=== PATIENT | female | born 1945 | race Caucasian/White ===

== ENCOUNTER 2016-08-15 16:31 | Emergency (ER) | payer MEDICARE ==
[~2016-08-15] VITALS: Ht 152.4 cm; Wt 66.0 kg
[~2016-08-15 16:31] MED LIST: DIAZ5TAB PO; MECL25 PO; TEMA15 PO
[2016-08-15 16:39] VITALS: BP 122/51; PULSE 67; RESP 16; TEMP 98.1; O2SAT 95
[2016-08-15] MEDS ORDERED: COUM5TAB PO (16:47)
[2016-08-15] MEDS ORDERED: METO50TA PO (16:47)
[2016-08-15] MEDS ORDERED: CLIN1CAP6 PO (16:57)
--- NOTE | 2016-08-15 16:57 | PD ---
HPI Chief Complaint: Bite or Sting Time Seen by Provider: 16:49 Travel History International Travel<30 days: No Contact w/Intl Traveler<30days: No Traveled to known affect area: No History of Present Illness HPI 70-year-old female presents emergency department after sustaining a cat bite to her left wrist/forearm this morning. The cat is a family pet kept indoors up-to -date on immunizations. Patient reports the wound has become increasingly more painful and swollen since this morning. Pain is worse with movement. Severity 5 out of 10. Patient has 3 puncture wounds to left wrist forearm area with mild swelling. She denies numbness/tingling/weakness in the extremity. PFSH Past Medical History Narrative Medical Atrial fibrillation on Coumadin Hx Anticoagulant Therapy: Yes Anxiety: Yes Depression: No Heart Rhythm Problems: No Cancer: No Cardiac Catheterization: No Cardiovascular Problems: No High Cholesterol: No Chest Pain: Yes (CP, neg trops>>possible gerd at last visit) Congestive Heart Failure: No Diabetes: No Diminished Hearing: No Endocrine: No Gastrointestinal Disorders: Yes GERD: Yes Genitourinary: No Hypertension: No Immune Disorder: No Musculoskeletal: No Neurologic: No Psychiatric: No Reproductive: No Respiratory: No Myocardial Infarction: No Tetanus Vaccination: < 5 Years Influenza Vaccination: Yes ?: Not Tubal Ligation: Yes Past Surgical History Abdominal Surgery: Yes Coronary Artery Bypass Graft: No Tonsillectomy: Yes Other Surgery: Yes (cyst from back removed) Family History Family Myocardial Infarction: Yes (MOTHER- CABG X5 VESSEL) Social History Alcohol Use: Yes (OCCASIONAL-SOCIAL) Tobacco Use: No Substance Use: No Allergies-Medications (Allergen,Severity, Reaction): Coded Allergies: Penicillin (Verified Allergy, Severe, 08/15/16) Aspirin (Verified Adverse Reaction, Severe, upsets stomach, 08/15/16) Reported Meds & Prescriptions Reported Meds & Active Scripts Active Reported Metoprolol Tartrate 50 Mg Tab 50 Mg PO BID Coumadin (Warfarin) 5 Mg Tab 5 Mg PO DAILY Review of Systems Except as stated in HPI: all other systems reviewed are Neg Physical Exam Narrative GENERAL: Well-nourished, well-developed patient. SKIN: Focused skin assessment warm/dry. 3 superficial puncture wounds to the left distal forearm with mild swelling and tenderness to palpation. Mild erythema of the site the punctures. No lymphangitis. HEAD: Normocephalic. EYES: No scleral icterus. No injection or drainage. NECK: Supple, trachea midline. No JVD or lymphadenopathy. CARDIOVASCULAR: Regular rate and rhythm without murmurs, gallops, or rubs. RESPIRATORY: Breath sounds equal bilaterally. No accessory muscle use. GASTROINTESTINAL: Abdomen soft, non-tender, nondistended. MUSCULOSKELETAL: No cyanosis. Left upper extremity 3 superficial puncture wounds to the left distal forearm with mild swelling and tenderness to palpation. Mild erythema of the site the punctures. No lymphangitis. 2+ distal pulses. Extremity is neurovascularly intact. BACK: Nontender without obvious deformity. No CVA tenderness. Data Data Last Documented VS Vital Signs Date Time Temp Pulse Resp B/P Pulse Ox O2 Delivery O2 Flow Rate FiO2 08/15/16 16:39 98.1 67 16 122/51 95 MDM Medical Decision Making Medical Screen Exam Complete: Yes Emergency Medical Condition: Yes Differential Diagnosis Cat-bite, puncture wound Narrative Course 70-year-old female presents to emergency department for evaluation of a Bite left upper extremity. The cat is a family pet Kept indoors and up-to-date on immunizations. On exam patient has 3 puncture wounds distal aspect of the forearm with mild swelling and tenderness to palpation. The puncture wounds have a small amount of surrounding erythema. Patient was placed on Augmentin arm put in a sling for comfort. Patient to follow-up with her doctor 2 days. Return precautions discussed. Patient agrees to plan Diagnosis Primary Impression: Cat bite of forearm Qualified Code: S51.852A - Cat bite of forearm, left, initial encounter Referrals: Primary Care Physician Patient Instructions: Animal Bite (ED), General Instructions Additional Instructions: Take medication as prescribed Follow up with her primary doctor for recheck of the wound when she days. Return to emergency department if new worsening symptoms. Scripts Clindamycin 300 Mg [id number] Mg PO Q6H #28 CAP Ref 0 Prov:Apryl Wang 08/15/16 Disposition: 01 DISCHARGE HOME Condition: Stable Apryl Wang Aug 15, 2016 16:57
== END 2016-08-15 17:21 | disposition home or self-care (01) ==
LOC: PHEFT 16:31
DX: S51.852A Open bite of left forearm, initial encounter (principal); W55.01XA Bitten by cat, initial encounter; I48.91 Unspecified atrial fibrillation; Z79.01 Long term (current) use of anticoagulants
CPT/HCPCS: 99282

== ENCOUNTER 2016-09-17 13:02 | Emergency (ER) | payer MEDICARE ==
[~2016-09-17] VITALS: Ht 152.4 cm; Wt 64.0 kg
[~2016-09-17 13:02] MED LIST changes: +CLIN1CAP6 PO; +COUM5TAB PO; -DIAZ5TAB PO; -MECL25 PO; +METO50TA PO; -TEMA15 PO
[2016-09-17 13:07] VITALS: BP 145/63; PULSE 68; RESP 18; TEMP 98.5; O2SAT 99
[2016-09-17] MEDS ORDERED: SODIUM CHLORIDE 0.9% FLUSH 10 ML FLUSH IV FLUSH PRN (13:15)
[2016-09-17] MEDS ORDERED: MORPHINE SULFATE 8 MG/ML INJ IV PUSH PRN (13:30)
[2016-09-17] MEDS ORDERED: ONDANSETRON HCL 4 MG/2 ML VIAL IV PUSH ONE (13:30)
--- NOTE | 2016-09-17 13:32 | PD ---
HPI . Abdominal pain Chief Complaint: Abdominal Pain Time Seen by Provider: 13:12 Travel History International Travel<30 days: No Contact w/Intl Traveler<30days: No Traveled to known affect area: No History of Present Illness HPI Patient presents with a chief complaint of lower abdominal pain. Onset was 6 days. Pain is described as sharp and like contractions. Her maximum pain is 10 /10. She has not noted any modifying factors. She reports some associated vomiting and diarrhea. She has also had chills and a poor appetite. She states that she has a known history of diverticulitis. PFSH Past Medical History Hx Anticoagulant Therapy: Yes (COUMADIN) Anxiety: Yes Depression: No Heart Rhythm Problems: No Cancer: No Cardiac Catheterization: No Cardiovascular Problems: Yes High Cholesterol: No Chest Pain: Yes (CP, neg trops>>possible gerd at last visit) Congestive Heart Failure: No Diabetes: No Diminished Hearing: No Endocrine: No Gastrointestinal Disorders: Yes GERD: Yes Genitourinary: No Hypertension: No Immune Disorder: No Musculoskeletal: No Neurologic: No Psychiatric: No Reproductive: No Respiratory: No Myocardial Infarction: No Tubal Ligation: Yes Past Surgical History Abdominal Surgery: Yes Coronary Artery Bypass Graft: No Tonsillectomy: Yes Other Surgery: Yes (cyst from back removed) Social History Alcohol Use: Yes (OCCASIONAL-SOCIAL) Tobacco Use: No Substance Use: No Allergies-Medications (Allergen,Severity, Reaction): Coded Allergies: Penicillin (Verified Allergy, Severe, 09/17/16) Aspirin (Verified Adverse Reaction, Severe, upsets stomach, 09/17/16) Reported Meds & Prescriptions Reported Meds & Active Scripts Active Zofran (Ondansetron HCl) 4 Mg Tab 4 Mg PO Q6HR PRN [place] (Hydrocodone-Acetaminophen) 5-325 mg Tab 1 Tab PO Q4H PRN Flagyl (Metronidazole) 500 Mg Tab 500 Mg PO BID 10 Days Bactrim DS (Sulfamethoxazole-Trimethoprim) 800-160 Mg Tab 1 Tab PO BID Reported Temazepam 15 Mg Cap 15 Mg PO HS PRN Metoprolol Tartrate 50 Mg Tab 50 Mg PO BID Coumadin (Warfarin) 5 Mg Tab 5 Mg PO DAILY Review of Systems Except as stated in HPI: all other systems reviewed are Neg General / Constitutional: Positive: Fever, Chills Gastrointestinal: Positive: Nausea, Vomiting, Diarrhea, Abdominal Pain Genitourinary: No: Urgency, Frequency, Dysuria Physical Exam Narrative GENERAL: Awake and alert. She appears to be in some distress related to pain. She is walking bent at the waist. SKIN: Warm and dry. HEAD: Atraumatic. Normocephalic. EYES: Pupils equal and round. Extraocular movements are intact. ENT: No nasal bleeding or discharge. Mucous membranes pink and moist. NECK: Trachea midline. Neck is supple. CARDIOVASCULAR: Regular rate and rhythm. Heart sounds are normal. RESPIRATORY: No accessory muscle use. Lungs are clear with full air movement throughout. GASTROINTESTINAL: Abdomen soft. Left lower quadrant tenderness with guarding. Bowel sounds positive. Nondistended. MUSCULOSKELETAL: No obvious deformities. No edema. NEUROLOGICAL: Awake and alert. No obvious cranial nerve deficits. Motor grossly within normal limits. Normal speech. PSYCHIATRIC: Appropriate mood and affect; insight and judgment normal. Data Data Last Documented VS Vital Signs Date Time Temp Pulse Resp B/P Pulse Ox O2 Delivery O2 Flow Rate FiO2 09/17/16 14:43 70 18 119/62 97 Room Air 09/17/16 13:07 98.5 Orders Complete Blood Count With Diff (09/17/16 13:12) Comprehensive Metabolic Panel (09/17/16 13:12) Lactic Acid (09/17/16 13:12) Urinalysis - C+S If Indicated (09/17/16 13:12) Ct Abd/Pel W Iv Contrast(Rout) (09/17/16 13:12) Iv Access Insert/Monitor (09/17/16 13:12) Sodium Chloride 0.9% Flush (Ns Flush) (09/17/16 13:15) Ondansetron Inj (Zofran Inj) (09/17/16 13:30) Morphine Inj (Morphine Inj) (09/17/16 13:30) Ciprofloxacin 400 Mg Premix (Cipro 400 M (09/17/16 13:45) Metronidazole 500 Mg Inj (Flagyl 500 Mg (09/17/16 13:45) Urine Culture (09/17/16 13:25) Sodium Chlor 0.9% 1000 Ml Inj (Ns 1000 M (09/17/16 14:30) Iohexol 350 Inj (Omnipaque 350 Inj) (09/17/16 15:14) Labs Laboratory Tests Test 09/17/16 09/17/16 13:25 13:55 Urine Color YELLOW Urine Turbidity CLEAR Urine pH 5.5 Urine Specific [place] 1.033 Urine Protein 30 mg/dL Urine Glucose (UA) NEG mg/dL Urine Ketones 15 mg/dL Urine Occult Blood MOD Urine Nitrite NEG Urine Bilirubin NEG Urine Leukocyte Esterase SMALL Urine RBC 10-14 /hpf Urine WBC 9-14 /hpf Urine Squamous Epithelial 0-5 /hpf Cells Urine Bacteria FEW /hpf Urine Mucus MANY /lpf Microscopic Urinalysis Comment CULTURE INDICATED White Blood Count 8.0 TH/MM3 Red Blood Count 4.17 MIL/MM3 Hemoglobin 12.6 GM/DL Hematocrit 38.0 % Mean Corpuscular Volume 91.1 FL Mean Corpuscular Hemoglobin 30.1 PG Mean Corpuscular Hemoglobin 33.0 % Concent Red Cell Distribution Width 12.4 % Platelet Count 352 TH/MM3 Mean Platelet Volume 8.6 FL Neutrophils (%) (Auto) 71.2 % Lymphocytes (%) (Auto) 21.2 % Monocytes (%) (Auto) 6.3 % Eosinophils (%) (Auto) 1.0 % Basophils (%) (Auto) 0.3 % Neutrophils # (Auto) 5.7 TH/MM3 Lymphocytes # (Auto) 1.7 TH/MM3 Monocytes # (Auto) 0.5 TH/MM3 Eosinophils # (Auto) 0.1 TH/MM3 Basophils # (Auto) 0.0 TH/MM3 CBC Comment DIFF FINAL Differential Comment Sodium Level 141 MEQ/L Potassium Level 3.5 MEQ/L Chloride Level 109 MEQ/L Carbon Dioxide Level 23.5 MEQ/L Anion Gap 9 MEQ/L Blood Urea Nitrogen 12 MG/DL Creatinine 0.69 MG/DL Estimat Glomerular Filtration 84 ML/MIN Rate Random Glucose 98 MG/DL Lactic Acid Level 1.5 mmol/L Calcium Level 8.4 MG/DL Total Bilirubin 0.2 MG/DL Aspartate Amino Transf 17 U/L (AST/SGOT) Alanine Aminotransferase 26 U/L (ALT/SGPT) Alkaline Phosphatase 82 U/L Total Protein 7.1 GM/DL Albumin 3.3 GM/DL [facility] Medical Decision Making Medical Screen Exam Complete: Yes Emergency Medical Condition: Yes Medical Record Reviewed: Yes (medical history is significant for atrial fibrillation and insomnia) Differential Diagnosis Differential diagnosis of abdominal pain includes but is not limited to gastritis, pancreatitis, hepatitis, gastroenteritis, gallbladder disease, constipation, urinary retention, UTI, peptic ulcer disease, diverticulitis or appendicitis Narrative Course This patient presents with lower abdominal pain. She is tender in the left lower quadrant. She will be evaluated for probable diverticulitis. CBC & BMP Diagram 09/17/16 13:55 Lactic acid is 1.5. Her UA looks contaminated. CT: Normal examination with a small cyst left ovary. 2 benign liver cysts. The patient feels much better. She will be discharged home. Diagnosis Primary Impression: Abdominal pain Qualified Code: R10.32 - Left lower quadrant pain Referrals: Kera Valencia MD Patient Instructions: Narcotic given in the ED Med/Other Pt SpecificInfo: Prescription(s) given Scripts Ondansetron (Zofran)4 Mg Tab4 Mg PO Q6HR PRN (NAUSEA OR VOMITING) #12 TAB Ref 0 Prov:Nazanin Dawson MD 09/17/16 Hydrocodone-Acetaminophen ([place])5-325 mg Tab1 Tab PO Q4H PRN (PAIN) #12 TAB Ref 0 Prov:Nazanin Dawson MD 09/17/16 Metronidazole (Flagyl)500 Mg [id number] Mg PO BID 10 Days Ref 0 Prov:Nazanin Dawson MD 09/17/16 Sulfamethoxazole-Trimethoprim (Bactrim DS)800-160 Mg Tab1 Tab PO BID #20 TAB Ref 0 Prov:Nazanin Dawson MD 09/17/16 Disposition: 01 DISCHARGE HOME Condition: Stable Nazanin Dawson MD Sep 17, 2016 13:32
[2016-09-17 13:36] LABS: GLUCOSE,URINE NEG (NEG); KETONE, URINE 15 mg/dL (NEG); NITRITE,URINE NEG (NEG); PH, URINE 5.5 (5.0-8.5)
[2016-09-17] MEDS ORDERED: TEMA15CA PO (13:37)
[2016-09-17 13:43] LABS: BLOOD, URINE MOD (NEG)
[2016-09-17] MEDS ORDERED: CIPROFLOXACIN 400 MG PREMIX 200 ML IV ONE (13:45)
[2016-09-17] MEDS ORDERED: metroNIDAZOLE 500 MG INJ 100 ML IV ONE (13:45)
[2016-09-17 13:46] LABS: BACTERIA, URINE FEW /hpf; COMMENT (UR) CULTURE INDICATED; CULTURE IF INDICATED CULTURE INDICATED; MUCUS URINE MANY /lpf (OCC); SQUAMOUS EPITHELIAL CELL URINE 0-5 /hpf (0-5); URINE COLOR YELLOW (YELLW/STRAW)
[2016-09-17 14:13] LABS: AUTOMATED NEUTROPHIL # 5.7 TH/MM3 (1.8-7.7); BASOPHIL % 0.3 % (0.0-2.0); EOSINOPHIL # 0.1 TH/MM3 (0-0.4); HEMO FLAGS DIFF FINAL; LYMPH % 21.2 % (9.0-44.0); LYMPHOCYTE # 1.7 TH/MM3 (1.0-4.8); MEAN CELL VOLUME 91.1 FL (80.0-100.0); MEAN CORPUSCULAR HEMOGLOBIN 30.1 PG (27.0-34.0); MONO % 6.3 % (0.0-8.0); NEUT % 71.2 % (16.0-70.0); PLATELET COUNT 352 TH/MM3 (150-450); RED BLOOD COUNT 4.17 MIL/MM3 (4.00-5.30); RED CELL DISTRIBUTION WIDTH 12.4 % (11.6-17.2)
[2016-09-17 14:14] LABS: CHLORIDE 109 MEQ/L (98-107); POTASSIUM 3.5 MEQ/L (3.5-5.1); SODIUM (NA) 141 MEQ/L (136-145)
[2016-09-17 14:17] LABS: ANION GAP 9 MEQ/L (5-15); BICARBONATE 23.5 MEQ/L (21.0-32.0)
[2016-09-17 14:18] LABS: BLOOD UREA NITROGEN 12 MG/DL (7-18)
[2016-09-17 14:20] LABS: ALT (GPT) 26 U/L (10-53)
[2016-09-17 14:21] LABS: AST (GOT) 17 U/L (15-37); GLOMERULAR FILTRATION RATE 84 ML/MIN (>89)
[2016-09-17 14:22] LABS: TOTAL BILIRUBIN ADULT 0.2 MG/DL (0.2-1.0)
[2016-09-17 14:23] LABS: ALKALINE PHOSPHATASE 82 U/L (45-117)
[2016-09-17] MEDS ORDERED: METR-1 PO (14:33)
[2016-09-17] MEDS ORDERED: BACT800T5 PO (14:33)
[2016-09-17] MEDS ORDERED: ZOFR4TAB PO (14:33)
[2016-09-17] MEDS ORDERED: NORC5TAB PO (14:33)
[2016-09-17] MEDS: SODIUM CHLOR 0.9% 1000 ML INJ 1,000 ML IV SCH ×2 (14:37→15:30)
[2016-09-17 14:43] VITALS: BP 119/62; PULSE 70; RESP 18; O2SAT 97
[2016-09-17] MEDS ORDERED: IOHEXOL 350 MG/ML 10 ML VIAL (for RAD DIAG) IV ONE (15:14)
--- NOTE | 2016-09-17 15:36 | RADRPT ---
EXAM DATE/TIME: 09/17/2016 14:55 [facility] COMPARISON: No previous studies available for comparison. INDICATIONS : Lower abdominal pain. IV CONTRAST: 85 cc Omnipaque 350 (iohexol) IV ORAL CONTRAST: No oral contrast ingested. RADIATION DOSE: 8.36 CTDIvol (mGy) MEDICAL HISTORY : Cardiovascular disease. Gastroesophageal reflux disease. SURGICAL HISTORY : Tubal ligation. ENCOUNTER: Initial ACUITY: 1 week PAIN SCALE: 7/10 LOCATION: Bilateral lower quadrant TECHNIQUE: Volumetric scanning of the abdomen and pelvis was performed. Using automated exposure control and ad justment of the mA and/or kV according to patient size, radiation dose was kept as low as reasonably achievable to obtain optimal diagnostic quality images. DICOM format image data is available electro nically for review and comparison. FINDINGS: LOWER LUNGS: The visualized lower lungs are clear. LIVER: Homogeneous density without lesion other than 2 large clearly benign cysts. There is no dilation of the biliary tree. No calcified gallstones. SPLEEN: Normal size without lesion. PANCREAS: Within normal limits. KIDNEYS: Normal in size and shape. There is no mass, stone or hydronephrosis. ADRENAL GLANDS: Within normal limits. VASCULAR: There is no aortic aneurysm. BOWEL/MESENTERY: The stomach, small bowel, and colon demonstrate no acute abnormality. There is no free intraperitone al air or fluid. ABDOMINAL WALL: Within normal limits. RETROPERITONEUM: There is no lymphadenopathy. Left-sided IVC. BLADDER: No wall thickening or mass. REPRODUCTIVE: Within normal limits. 2 cm cyst left ovary INGUINAL: There is no lymphadenopathy or hernia. MUSCULOSKELETAL: Within normal limits for patient age. CONCLUSION: Normal examination with a small cyst left ovary. 2 benign liver cysts. Shane Nair MD on September 17, 2016 at 15:32 Board Certified Radiologist. This report was verified electronically.
[2016-09-17 16:29] VITALS: BP 144/97
== END 2016-09-17 16:40 | disposition home or self-care (01) ==
LOC: PHED 13:02
DX: R10.32 Left lower quadrant pain (principal); K76.89 Other specified diseases of liver; N83.202 Unspecified ovarian cyst, left side; Z79.01 Long term (current) use of anticoagulants
CPT/HCPCS: 74177; 80053; 81001; 83605; 85025; 87086; 96365; 96368; 96375; 99285; J0744; J2270; J2405; J7030; Q9967

== ENCOUNTER 2016-10-12 16:56 | Emergency (ER) | payer MEDICARE ==
[~2016-10-12] VITALS: Ht 152.4 cm; Wt 65.0 kg
[~2016-10-12 16:56] MED LIST changes: +BACT800T5 PO; -CLIN1CAP6 PO; +METR-1 PO; +NORC5TAB PO; +TEMA15CA PO; +ZOFR4TAB PO
[2016-10-12 17:04] VITALS: BP 124/61; PULSE 63; RESP 16; TEMP 98.3; O2SAT 96
[2016-10-12 18:53] VITALS: BP 113/56; PULSE 59; RESP 14; TEMP 98; O2SAT 99
[2016-10-12] MEDS ORDERED: SODIUM CHLORIDE 0.9% FLUSH 10 ML FLUSH IV FLUSH PRN (19:30)
--- NOTE | 2016-10-12 19:30 | PD ---
HPI Chief Complaint: low abd cramping Time Seen by Provider: 19:18 Travel History International Travel<30 days: No Contact w/Intl Traveler<30days: No Traveled to known affect area: No History of Present Illness HPI patient c/o lower abdominal cramping discomfort for about a week, today only once this am, pt had a mucosy pink bm, no repeated movement since. low suprapubic region, crampy, 7/10, nonrad, no alleviating or aggravating factors PFSH Past Medical History Hx Anticoagulant Therapy: Yes (COUMADIN) Anxiety: Yes Depression: No Heart Rhythm Problems: No Cancer: No Cardiac Catheterization: No Cardiovascular Problems: Yes High Cholesterol: No Chest Pain: Yes Congestive Heart Failure: No Diabetes: No Diminished Hearing: No Diverticulitis: Yes Endocrine: No Gastrointestinal Disorders: Yes GERD: Yes Genitourinary: No Hypertension: No Immune Disorder: No Musculoskeletal: No Neurologic: No Psychiatric: No Reproductive: No Respiratory: No Myocardial Infarction: No Tubal Ligation: Yes Past Surgical History Abdominal Surgery: Yes Coronary Artery Bypass Graft: No Tonsillectomy: Yes Other Surgery: Yes (cyst from back removed) Social History Alcohol Use: Yes (OCCASIONAL-SOCIAL) Tobacco Use: No Substance Use: No Allergies-Medications (Allergen,Severity, Reaction): Coded Allergies: Penicillin (Verified Allergy, Severe, 10/12/16) Aspirin (Verified Adverse Reaction, Severe, upsets stomach, 10/12/16) Reported Meds & Prescriptions Reported Meds & Active Scripts Active Ultram (Tramadol HCl) 50 Mg Tab 50 Mg PO Q4H PRN Flagyl (Metronidazole) 500 Mg Tab 500 Mg PO TID Ciprofloxacin (Ciprofloxacin HCl) 500 Mg Tab 500 Mg PO BID [place] (Hydrocodone-Acetaminophen) 5-325 mg Tab 1 Tab PO Q4H PRN Reported Temazepam 15 Mg Cap 15 Mg PO HS PRN Metoprolol Tartrate 50 Mg Tab 50 Mg PO BID Coumadin (Warfarin) 5 Mg Tab 5 Mg PO DAILY Review of Systems Except as stated in HPI: all other systems reviewed are Neg Gastrointestinal: Positive: Abdominal Pain, Hematochezia (?, no repeated episodes) Physical Exam Narrative GENERAL: SKIN: Warm and dry. HEAD: Atraumatic. Normocephalic. EYES: Pupils equal and round. No scleral icterus. No injection or drainage. ENT: No nasal bleeding or discharge. Mucous membranes pink and moist. NECK: Trachea midline. No JVD. CARDIOVASCULAR: Regular rate and rhythm. RESPIRATORY: No accessory muscle use. Clear to auscultation. Breath sounds equal bilaterally. GASTROINTESTINAL: Abdomen soft, MILD SUPRAPUBIC TTP, nondistended. ZACK BALLESTEROS AT BEDSIDE DURING GUAIAC TEST: NEGATIVE, NO HEMORRHOIDS/FISSURE MUSCULOSKELETAL: Extremities without clubbing, cyanosis, or edema. No obvious deformities. NEUROLOGICAL: Awake and alert. No obvious cranial nerve deficits. Motor grossly within normal limits. Five out of 5 muscle strength in the arms and legs. Normal speech. PSYCHIATRIC: Appropriate mood and affect; insight and judgment normal. Data Data Last Documented VS Vital Signs Date Time Temp Pulse Resp B/P Pulse Ox O2 Delivery O2 Flow Rate FiO2 10/12/16 21:28 56 18 131/63 98 Room Air 10/12/16 18:53 98.0 Orders Complete Blood Count With Diff (10/12/16 19:25) Comprehensive Metabolic Panel (10/12/16 19:25) Lipase (10/12/16 19:25) Prothrombin Time / Inr (Pt) (10/12/16 19:25) Act Partial Throm Time (Ptt) (10/12/16 19:25) Ct Abd/Pel W Iv Contrast(Rout) (10/12/16 19:25) Iv Access Insert/Monitor (10/12/16 19:25) Ecg Monitoring (10/12/16 19:25) Oximetry (10/12/16 19:25) NPO (10/12/16 19:25) Sodium Chloride 0.9% Flush (Ns Flush) (10/12/16 19:30) Iohexol 350 Inj (Omnipaque 350 Inj) (10/12/16 21:06) Levofloxacin (Levaquin) (10/12/16 21:45) Metronidazole (Flagyl) (10/12/16 21:45) Labs Laboratory Tests Test 10/12/16 20:00 White Blood Count 6.8 TH/MM3 Red Blood Count 3.62 MIL/MM3 Hemoglobin 11.1 GM/DL Hematocrit 32.4 % Mean Corpuscular Volume 89.5 FL Mean Corpuscular Hemoglobin 30.7 PG Mean Corpuscular Hemoglobin 34.3 % Concent Red Cell Distribution Width 12.2 % Platelet Count 320 TH/MM3 Mean Platelet Volume 8.3 FL Neutrophils (%) (Auto) 51.3 % Lymphocytes (%) (Auto) 35.8 % Monocytes (%) (Auto) 9.2 % Eosinophils (%) (Auto) 1.3 % Basophils (%) (Auto) 2.4 % Neutrophils # (Auto) 3.5 TH/MM3 Lymphocytes # (Auto) 2.4 TH/MM3 Monocytes # (Auto) 0.6 TH/MM3 Eosinophils # (Auto) 0.1 TH/MM3 Basophils # (Auto) 0.2 TH/MM3 CBC Comment DIFF FINAL Differential Comment Prothrombin Time 47.8 SEC Prothromb Time International 4.1 RATIO Ratio Activated Partial 49.4 SEC Thromboplast Time Sodium Level 141 MEQ/L Potassium Level 3.7 MEQ/L Chloride Level 107 MEQ/L Carbon Dioxide Level 24.8 MEQ/L Anion Gap 9 MEQ/L Blood Urea Nitrogen 16 MG/DL Creatinine 0.53 MG/DL Estimat Glomerular Filtration 114 ML/MIN Rate Random Glucose 94 MG/DL Calcium Level 9.0 MG/DL Total Bilirubin 0.1 MG/DL Aspartate Amino Transf 20 U/L (AST/SGOT) Alanine Aminotransferase 29 U/L (ALT/SGPT) Alkaline Phosphatase 81 U/L Total Protein 7.0 GM/DL Albumin 3.4 GM/DL Lipase 257 U/L MDM Medical Decision Making Medical Screen Exam Complete: Yes Emergency Medical Condition: Yes Medical Record Reviewed: Yes Differential Diagnosis gi bleed v colitis/diverticulitis v uti v bladder spasms Narrative Course after review of labs and ct, no major leukocytosis noted, ct showed acute on chronic sigmoid colitis, possibly explaining symptoms ongoing for a week or so having being previously dx as uti. pt was nontoxic and will d/c home [facility] Point of Care Internal Pos. & Neg. Controls: Passed Fecal Specimen Occult Blood: Negative Comment red speck mucosy in texture actually did not turn blue at all, no trace pattern either Diagnosis Primary Impression: SIGMOID COLITIS Patient Instructions: Colitis (ED), General Instructions Scripts Tramadol (Ultram)50 Mg Tab50 Mg PO Q4H PRN (PAIN) #28 TAB Prov:Jaylen Miranda MD 10/12/16 Metronidazole (Flagyl)500 Mg [id number] Mg PO TID #30 TAB Prov:Jaylen Miranda MD 10/12/16 Ciprofloxacin 500 Mg [id number] Mg PO BID #14 TAB Prov:Jaylen Miranda MD 10/12/16 Disposition: 01 DISCHARGE HOME Condition: Stable Jaylen Miranda MD Oct 12, 2016 19:30
[2016-10-12 19:55] VITALS: BP 143/57; PULSE 56; RESP 18; O2SAT 98
[2016-10-12 20:13] LABS: AUTOMATED NEUTROPHIL # 3.5 TH/MM3 (1.8-7.7); BASOPHIL # 0.2 TH/MM3 (0-0.2); BASOPHIL % 2.4 % (0.0-2.0); EOSINOPHIL # 0.1 TH/MM3 (0-0.4); EOSINOPHIL % 1.3 % (0.0-4.0); HEMATOCRIT 32.4 % (35.0-46.0); HEMO FLAGS DIFF FINAL; LYMPH % 35.8 % (9.0-44.0); LYMPHOCYTE # 2.4 TH/MM3 (1.0-4.8); MEAN CELL VOLUME 89.5 FL (80.0-100.0); MEAN CORPUSCULAR HEMOGLOBIN 30.7 PG (27.0-34.0); MEAN CORPUSCULAR HGB CONC 34.3 % (32.0-36.0); MONO % 9.2 % (0.0-8.0); NEUT % 51.3 % (16.0-70.0); PLATELET COUNT 320 TH/MM3 (150-450); RED BLOOD COUNT 3.62 MIL/MM3 (4.00-5.30); RED CELL DISTRIBUTION WIDTH 12.2 % (11.6-17.2); WHITE BLOOD COUNT 6.8 TH/MM3 (4.0-11.0)
[2016-10-12 20:22] LABS: CHLORIDE 107 MEQ/L (98-107); POTASSIUM 3.7 MEQ/L (3.5-5.1); SODIUM (NA) 141 MEQ/L (136-145)
[2016-10-12 20:26] LABS: ANION GAP 9 MEQ/L (5-15); BICARBONATE 24.8 MEQ/L (21.0-32.0); BLOOD UREA NITROGEN 16 MG/DL (7-18)
[2016-10-12 20:27] LABS: APTT (PATIENT) 49.4 SEC (24.3-30.1); INTERNATIONAL NORMALIZED RATIO 4.1 RATIO; PROTHROMBIN TIME - PATIENT 47.8 SEC (9.8-11.6)
[2016-10-12 20:29] LABS: ALT (GPT) 29 U/L (10-53); AST (GOT) 20 U/L (15-37); GLOMERULAR FILTRATION RATE 114 ML/MIN (>89)
[2016-10-12 20:30] LABS: TOTAL BILIRUBIN ADULT 0.1 MG/DL (0.2-1.0)
[2016-10-12 20:31] LABS: ALKALINE PHOSPHATASE 81 U/L (45-117)
[2016-10-12 20:34] VITALS: RESP 18; O2SAT 98
[2016-10-12] MEDS ORDERED: IOHEXOL 350 MG/ML 10 ML VIAL (for RAD DIAG) IV ONE (21:06)
--- NOTE | 2016-10-12 21:24 | RADRPT ---
EXAM DATE/TIME: 10/12/2016 20:49 [facility] COMPARISON: CT ABDOMEN & PELVIS W CONTRAST, September 17, 2016, 14:55. INDICATIONS : Bilateral lower quadrant pain. IV CONTRAST: 100 cc Omnipaque 350 (iohexol) IV ORAL CONTRAST: No oral contrast ingested. RADIATION DOSE: 9.05 CTDIvol (mGy) MEDICAL HISTORY : Diverticulitis. Gastroesophageal reflux disease. SURGICAL HISTORY : Tubal ligation. ENCOUNTER: Initial ACUITY: 1 day PAIN SCALE: 7/10 LOCATION: Bilateral lower quadrant TECHNIQUE: Volumetric scanning of the abdomen and pelvis was performed. Using automated exposure control and ad justment of the mA and/or kV according to patient size, radiation dose was kept as low as reasonably achievable to obtain optimal diagnostic quality images. DICOM format image data is available electro nically for review and comparison. FINDINGS: LOWER LUNGS: The visualized lower lungs are clear. LIVER: Scattered hepatic cysts are again noted. SPLEEN: Normal size without lesion. PANCREAS: Within normal limits. KIDNEYS: Normal in size and shape. There is no mass, stone or hydronephrosis. ADRENAL GLANDS: Within normal limits. VASCULAR: There is no aortic aneurysm. BOWEL/MESENTERY: There is moderate to severe diverticulosis of the sigmoid colon. Mild inflammatory changes are demons trated, mostly evident as wall thickening and edema/induration. There is also fairly exuberant mucosa l enhancement which would raise concern for superimposed colitis such as C. difficile. No measurable mass or convincing evidence of intraluminal hemorrhage. The appendix is well-visualized, normal. Ther e is no bowel obstruction. No free fluid or abscess. ABDOMINAL WALL: Within normal limits. RETROPERITONEUM: There is no lymphadenopathy. BLADDER: No wall thickening or mass. REPRODUCTIVE: There is a 24 mm cyst of the left ovary. No free fluid. INGUINAL: There is no lymphadenopathy or hernia. MUSCULOSKELETAL: Within normal limits for patient age. CONCLUSION: 1. Sigmoid colitis that appears to represent acute on chronic diverticulitis with possible superimpos ed infectious colitis such as C. difficile. No obstruction, abscess or free air. 2. Hepatic cysts are again noted. 3. 24 mm left ovarian cyst appears fairly simple but still somewhat unusual in a patient this age. Fo llowup pelvic ultrasound in 8-12 weeks recommended to confirm stability. Casey Lozano MD on October 12, 2016 at 21:17 Board Certified Radiologist. This report was verified electronically.
[2016-10-12 21:28] VITALS: BP 131/63; PULSE 56; RESP 18; O2SAT 98
[2016-10-12] MEDS ORDERED: metroNIDAZOLE 500 MG TAB PO ONE (21:45)
[2016-10-12] MEDS ORDERED: LEVOFLOXACIN 500 MG TAB PO ONE (21:45)
[2016-10-12] MEDS ORDERED: ULTR50TA5 PO (22:29)
[2016-10-12] MEDS ORDERED: CIPR500T2 PO (22:29)
[2016-10-12] MEDS ORDERED: METR-1 PO (22:29)
== END 2016-10-12 22:54 | disposition home or self-care (01) ==
LOC: PHED 16:56
DX: K52.9 Noninfective gastroenteritis and colitis, unspecified (principal)
CPT/HCPCS: 74177; 80053; 83690; 85025; 85610; 85730; 99285; Q9967